=== PATIENT | male | born 1955 | race African-American/Black ===

== ENCOUNTER 2017-10-14 21:44 | Emergency (ER) | payer OTHER ==
[~2017-10-14] VITALS: Ht 182.9 cm; Wt 86.3 kg
[2017-10-14 22:18] LABS: HEMATOCRIT 41.3 % (38.0-50.0); HEMOGLOBIN 15.5 G/DL (12.5-16.6); MCH 33.9 PG (29.0-34.0); MCHC 37.5 G/DL (30.0-36.0); MCV 90.4 FL (86-99); PLATELET COUNT 252 K/uL (156-360); RBC DIS.WIDTH-CV 13.6 % (11.8-14.6); RBC DIS.WIDTH-SD 45.1 % (39-53); RED BLOOD COUNT 4.57 M/uL (4.00-5.50); WHITE BLOOD COUNT 5.1 K/uL (4.1-10.2)
[2017-10-14 22:31] LABS: CHLORIDE 109 mEq/L (99-109); SODIUM 142 mEq/L (136-147)
[2017-10-14 22:33] LABS: GLUCOSE 101 mg/dL (70-99)
[2017-10-14 22:37] LABS: CREATININE 1.1 mg/dL (0.6-1.3)
[2017-10-14 22:38] LABS: UREA NITROGEN (BUN) 10 mg/dL (9-23)
[2017-10-14 22:41] LABS: GFR ESTIMATE (CALCULATED) > 59 mL/min/ (58.99-99999)
[2017-10-14 22:43] LABS: TROP-I INTERPRETATION NEGATIVE; TROPONIN-I < 0.01 ng/mL (0.0-0.30)
[2017-10-14 23:50] LABS: INTER. NORMALIZED RATIO 1.1
[2017-10-15 00:06] LABS: LIPASE 16 U/L (1.0-51.0)
[2017-10-15 01:41] LABS: APPEARANCE CLEAR ((CLEAR)); BILIRUBIN NEGATIVE; BLOOD MODERATE; COLOR YELLOW ((YELLOW)); GLUCOSE (STRIP) NEGATIVE; KETONES 5; LEUKOCYTES NEGATIVE; NITRITE NEGATIVE; PROTEIN (STRIP) NEGATIVE
[2017-10-15 01:43] LABS: BACTERIA RARE /HPF; EPITHELIAL CELLS RARE /HPF; MUCUS TRACE /LPF; RED BLOOD CELLS 0-5 /HPF (0-5); WHITE BLOOD CELLS 0-5 /HPF (0-5)
[2017-10-15 04:01] VITALS: BP 135/73
== END 2017-10-15 03:36 | disposition short-term general hospital (02) ==
LOC: EME 21:44
PROVIDERS: Emergency Medicine
DX: N13.2 Hydronephrosis with renal and ureteral calculous obstruction (principal); R11.10 Vomiting, unspecified; I10 Essential (primary) hypertension; F17.200 Nicotine dependence, unspecified, uncomplicated
CPT/HCPCS: 71046; 71275; 74177; 80048; 81003; 83690; 84484; 85027; 85610; 85730; 86850; 86900; 86901; 93005; 99281; 99285; J0360; J2405; J3010; J7040